=== PATIENT | male | born 1945 | race Caucasian/White ===

== ENCOUNTER 2018-05-28 19:28 | Emergency (ER) | payer MEDICARE, OTHER ==
[~2018-05-28] VITALS: Ht 180.3 cm; Wt 84.5 kg
[2018-05-28 20:00] VITALS: BP 144/91; PULSE 88; TEMP 98.7
== END 2018-05-28 20:00 | disposition home or self-care (01) ==
LOC: COL.ER 19:28
DX: K40.90 Unilateral inguinal hernia, without obstruction or gangrene, not specified as recurrent (principal); Z98.890 Other specified postprocedural states

== ENCOUNTER 2018-06-25 10:44 | Day surgery (SDC) | payer MEDICARE, OTHER ==
[2018-06-25] VITALS (7 sets, daily range): BP systolic 121–146; BP diastolic 44–85; PULSE 56–77; TEMP 97.6–98.3
[~2018-06-25] VITALS: Ht 180.3 cm; Wt 83.6 kg
[2018-06-25] MEDS ORDERED: NORCO 325 MG-51 TAB PO (11:20)
== END 2018-06-25 17:20 | disposition home or self-care (01) ==
LOC: SDCO 10:44
DX: K40.20 Bilateral inguinal hernia, without obstruction or gangrene, not specified as recurrent (principal); I11.0 Hypertensive heart disease with heart failure; I50.9 Heart failure, unspecified; I25.2 Old myocardial infarction; I25.10 Atherosclerotic heart disease of native coronary artery without angina pectoris; M19.90 Unspecified osteoarthritis, unspecified site; J44.9 Chronic obstructive pulmonary disease, unspecified; F17.210 Nicotine dependence, cigarettes, uncomplicated; Z96.661 Presence of right artificial ankle joint; Z95.5 Presence of coronary angioplasty implant and graft; Z79.82 Long term (current) use of aspirin
CPT/HCPCS: C1781; J0690; J1100; J1885; J2405; J2704; J3010; J7120